=== PATIENT | male | born 1990 | race Two or more races ===

== ENCOUNTER 2022-05-30 16:31 | Emergency (ER) | payer BC ==
[~2022-05-30] VITALS: Ht 177.8 cm; Wt 68.0 kg
[2022-05-30 16:34] VITALS: BP 117/82
[2022-05-30 17:16] LABS: CLARITY URINE CLEAR (CLEAR); COLOR URINE YELLOW (YELLOW); KETONES URINE NEGATIVE (NEGATIVE); LEUKOCYTE ESTERASE URINE NEGATIVE (NEGATIVE); NITRITE URINE NEGATIVE (NEGATIVE); OCCULT BLOOD URINE NEGATIVE (NEGATIVE); PROTEIN URINE NEGATIVE (NEGATIVE); SPECIFIC GRAVITY URINE 1.007 (1.005-1.030); UROBILINOGEN URINE 0.2 E.U./dL (0.2-1.0)
[2022-05-30] MEDS ORDERED: IBUP-2029 MT (17:59)
== END 2022-05-30 18:15 | disposition home or self-care (01) ==
LOC: ER 16:31
DX: N48.89 Other specified disorders of penis (principal)
CPT/HCPCS: 81003; 87491; 87591; 99283